=== PATIENT | male | born 1950 | race Caucasian/White ===

== ENCOUNTER 2018-12-06 15:41 | Inpatient (IN) | payer SELFPAY ==
[~2018-12-06] VITALS: Ht 165.1 cm; Wt 68.0 kg
--- NOTE | 2018-12-06 16:07 | NUR ---
PT TO BED 7 VIA WHEELCHAIR
[2018-12-06 16:12] VITALS: BP 99/59
--- NOTE | 2018-12-06 16:30 | NUR ---
Came back from [place] last September Bib ex with c/o general weakness and lethargic does not want to talk x 1 wk. PT NOT OPENNING EYES, PALE IN APPEARANCE. NEEDED ASSISTANCE TO BE PUT INTO BED. PATIENT POSITIONED FOR COMFORT; HOB ELEVATED; BEDRAILS UP X2; BED DOWN. ER MD MADE AWARE OF PT STATUS.
[2018-12-06] MEDS ORDERED: ATOR20TA PO (16:54)
[2018-12-06] MEDS ORDERED: LANS15TA2 PO (16:54)
[2018-12-06] MEDS ORDERED: SERT50TA PO (16:54)
[2018-12-06 17:06] LABS: BASOPHILS % (AUTO) 0.3 % (0.0-2.0); EOSINOPHILS # (AUTO) 0.1 K/uL (0-0.4); EOSINOPHILS % (AUTO) 2.8 % (0.0-4.0); HEMATOCRIT 33.7 % (36-52); HEMOGLOBIN 11.4 g/dL (12.0-18.0); LYMPHOCYTES # (AUTO) 2.1 K/uL (2.0-11.5); LYMPHOCYTES % (AUTO) 43.9 % (20.5-51.1); MEAN CORPUSCULAR HEMOGLOBIN 27 pg (27-31); MEAN CORPUSCULAR HGB CONC 34 g/dL (33-37); MONOCYTES # (AUTO) 0.4 K/uL (0.8-1.0); MONOCYTES % (AUTO) 9.2 % (1.7-9.3); NEUTROPHILS # (AUTO) 2.1 K/uL (1.8-7.7); NEUTROPHILS % (AUTO) 43.8 % (42.2-75.2); PLATELET COUNT (AUTO) 262 K/uL (140-450); RED BLOOD CELL COUNT(AUTO) 4.21 MIL/uL (4.20-6.10); RED CELL DISTRIBUTION WIDTH 14.4 % (11.6-13.7); WHITE BLOOD COUNT (AUTO) 4.7 K/uL (4.8-10.8)
[2018-12-06 17:32] LABS: ALBUMIN 3.5 g/dL (3.4-5.0); ANION GAP 12.9 (8-16); ASPARTATE AMINOTRANSFERASE 67 U/L (15-37); CARBON DIOXIDE 25.9 mmol/L (21-32); CHLORIDE 85 mmol/L (98-107); CREATININE 1.3 mg/dL (0.7-1.3); GFR ARICAN-AMERICAN 70 mL/min (>90); GLUCOSE 79 mg/dL (74-106); POTASSIUM 3.8 mmol/L (3.5-5.1); TOTAL BILIRUBIN 0.7 mg/dL (0.0-1.0); UREA NITROGEN, BLOOD 15 mg/dL (7-18)
[2018-12-06 17:35] LABS: SALICYLATE < 2.8 mg/dL (2.8-20.0); SODIUM SERUM 120 mmol/L (136-145)
[2018-12-06 17:37] LABS: ACETAMINOPHEN < 0.5 ug/ml (10-30)
--- NOTE | 2018-12-06 17:37 | NUR ---
VAHID ALEXIS AND DIONI MEHTA NOTIFIED OF Na 120 REPORTED BY LAB
[2018-12-06 17:39] LABS: CKMB RELATIVE INDEX 0.9 (0.0-2.5)
[2018-12-06] MEDS ORDERED: HYDROcodone/APAP 7.5/325 MG 1 TAB PO PRN (17:45)
[2018-12-06] MEDS ORDERED: ONDANSETRON 4 MG/2 ML VIAL IVP PRN (17:45)
[2018-12-06] MEDS ORDERED: ACETAMINOPHEN 325 MG TAB PO PRN (17:45)
[2018-12-06 18:43] LABS: FREE T4 (FREE THYROXINE) 0.44 ng/dL (0.76-1.46); PHOSPHORUS 4.1 mg/dL (2.5-4.9); THYROID STIMULATING HORMONE 3.32 uIU/mL (0.34-3.74)
[2018-12-06 18:44] LABS: PROTHROMBIN TIME 10.6 secs (10.8-13.4)
--- NOTE | 2018-12-06 18:54 | NUR ---
PT TAKEN TO TELE FLOOR BY REUBEN REDDING AND EMT AMANDA
--- NOTE | 2018-12-06 19:00 | NUR ---
RECEIVED PT FROM ER VIA RCHANELLE. PT AWAKE, ALERT X 3, CLEAR SPEECH BUT DELAYED DUE TO WEAKNESS. PT ON TELE. WITH IV SITE ON THE LEFT FA. G 22. DR. ALEGRE AT BEDSIDE INTERVIEWING FAMILY, DAUGHTER AND . PT ORIENTED TO UNIT, SKIN CHECKED, INTACT. W/ SWOLLEN SOLE OF BILATERAL FEET NOTED. DR. AGARWAL. PLACED AT FALL RISK . FALL PRECAUTION PROTOCOL IN PLACE. BED AT LOWEST POSITION. CALL LIGHT WITHIN EASY REACH
--- NOTE | 2018-12-06 19:08 | NUR ---
Patient will be admitted to care of DR. CASTRO. Admited to TELE. Will go to room 107B. Belongings list completed. Report to REUBEN.
[2018-12-06] MEDS ORDERED: NACL 0.9% 500 ML IV ONE (20:00)
--- NOTE | 2018-12-06 21:00 | NUR ---
PT MEDICATED ORALLY. WILL INFORM DRZaida FOR SWALLOWING EVAL IF NECESSARY ABLE TO TAKE SMALL MEDS ONLY.
[2018-12-06] MEDS: NACL 0.9% 1,000 ML IV SCH (21:05)
[2018-12-06] MEDS: ATORVASTATIN 20 MG TAB PO SCH (21:06)
[2018-12-06] MEDS: DOCUSATE SODIUM 100 MG GELCAP PO SCH (22:26)
--- NOTE | 2018-12-06 22:30 | NUR ---
PT OBSERVED W/ RIGHT SIDED SPASTICITY ON THE UPPER ARM. AAND WEAKNESS ON THE RIGHT LE.
[2018-12-06 23:50] LABS: ALBUMIN 3.5 g/dL (3.4-5.0); ANION GAP 8.8 (8-16); CREATININE 1.2 mg/dL (0.7-1.3); POTASSIUM 3.8 mmol/L (3.5-5.1); TOTAL BILIRUBIN 0.6 mg/dL (0.0-1.0)
[2018-12-07] VITALS: BP 130/80
[2018-12-07 00:53] LABS: ALBUMIN 3.2 g/dL (3.4-5.0); ANION GAP 8.9 (8-16); CARBON DIOXIDE 27.9 mmol/L (21-32); POTASSIUM 3.8 mmol/L (3.5-5.1); TOTAL BILIRUBIN 0.5 mg/dL (0.0-1.0)
[2018-12-07] MEDS: NACL 0.9% 500 ML IV SCH ×2 (02:00→17:05)
[2018-12-07 04:00] VITALS: BP 135/78
[2018-12-07] MEDS: NACL 0.9% 1,000 ML IV SCH (05:18)
[2018-12-07 06:35] LABS: BASOPHILS % (AUTO) 1.3 % (0.0-2.0); EOSINOPHILS # (AUTO) 0.1 K/uL (0-0.4); EOSINOPHILS % (AUTO) 2.9 % (0.0-4.0); HEMOGLOBIN 10.6 g/dL (12.0-18.0); LYMPHOCYTES # (AUTO) 1.9 K/uL (2.0-11.5); LYMPHOCYTES % (AUTO) 47.7 % (20.5-51.1); MEAN CORPUSCULAR HEMOGLOBIN 27 pg (27-31); MEAN CORPUSCULAR HGB CONC 34 g/dL (33-37); MEAN CORPUSCULAR VOLUME 79.2 fL (80-94); MONOCYTES # (AUTO) 0.3 K/uL (0.8-1.0); MONOCYTES % (AUTO) 8.2 % (1.7-9.3); NEUTROPHILS # (AUTO) 1.6 K/uL (1.8-7.7); NEUTROPHILS % (AUTO) 39.9 % (42.2-75.2); PLATELET COUNT (AUTO) 237 K/uL (140-450); RED BLOOD CELL COUNT(AUTO) 3.92 MIL/uL (4.20-6.10); RED CELL DISTRIBUTION WIDTH 14.3 % (11.6-13.7)
--- NOTE | 2018-12-07 06:45 | NUR ---
PT HAD A HYPOGLYCEMIC EPISODE. LAB CALLED THAT BS WAS 45MG/DL. INFORMED DR WITH ORDERS CARRIED OUT
[2018-12-07 06:46] LABS: CARBON DIOXIDE 25.4 mmol/L (21-32); CREATININE 0.9 mg/dL (0.7-1.3); POTASSIUM 3.4 mmol/L (3.5-5.1)
[2018-12-07 06:53] LABS: CHOL/HDL RATIO 3.6 (1-4.5); MAGNESIUM 1.8 mg/dL (1.8-2.4); PHOSPHORUS 3.3 mg/dL (2.5-4.9)
[2018-12-07] MEDS ORDERED: DEXTROSE 50% 50 ML SYR IVP PRN (07:05)
[2018-12-07] MEDS ORDERED: DEXT 5% /NACL 0.9% 1,000 ML IV SCH (07:15)
[2018-12-07] MEDS ORDERED: DEXTROSE 50% 50 ML SYR IVP ONE (07:20)
--- NOTE | 2018-12-07 07:35 | NUR ---
ENDORSED TO NEXT SHIFT. TAKEN BLOOD SUGAR AT 163MG/DL AFTER A HYPOGLYCEMIC EPISODE EARLIER AND WAS GIVEN D50% INJECTION. STARTED D5.9NS AT 90 ML/HR.
--- NOTE | 2018-12-07 07:36 | NUR ---
REPORT RECEIVED FROM ALLIGATOR HUNTER NURSE, PT SITTING UP RESTING IN NAD, RESP EVNE UNLABORED, SKIN WARM DRY COLOR WNL, POC REVIEWED, ALLIGATOR HUNTER NRUSE AT BEDSIDE, CHECKED BLOOD SUGAR, IMPROVED AFTER D50, ALL SAFETY MEASURES IN [place], WILL CONTINUE TO MONITOR.
--- NOTE | 2018-12-07 07:45 | NUR ---
PT HAD A HYPOGLYCEMIC EPISODE. LAB CALLED THAT BS WAS 45MG/DL. INFORMED DR WITH ORDERS CARRIED OUT Addendum: 12/07/18 at 0852 by Krystal Herndon RN WRONG TIME
--- NOTE | 2018-12-07 07:51 | NUR ---
PATIENT HAS BEEN SCREENED AND CATEGORIZED HIGH NUTRITION RISK. PATIENT WILL BE SEEN WITHIN 1-2 DAYS OF ADMISSION. 12/07/18-12/08/[address]
[2018-12-07 08:00] VITALS: BP 138/88
[2018-12-07] MEDS ORDERED: POTASSIUM CHLORIDE 10 MEQ TABER PO SCH ×2 (08:00→13:00)
--- NOTE | 2018-12-07 08:01 | NUR ---
PT SITTING UP EATING BREAKFAST, CHIRAG WELL.
[2018-12-07] MEDS: FERROUS SULFATE 325 MG TABEC PO SCH (08:57)
[2018-12-07] MEDS: DOCUSATE SODIUM 100 MG GELCAP PO SCH ×2 (08:57→20:34)
[2018-12-07] MEDS: PANTOPRAZOLE 40 MG TABEC PO SCH (08:57)
--- NOTE | 2018-12-07 08:58 | NUR ---
AM MEDS GIVEN, PT TOOK ONE PILL AT A TIME, CHIRAG WELL. HEPARIN HELD FOR INCREASED PTT.
--- NOTE | 2018-12-07 10:25 | NUR ---
DAUGHTER AT BEDSIDE, PT ASSISTED TO BATHROOM FOR BM, 2 PERSON MAXIMUM ASSIST, PT UNSTABLE ON HIS FEET.
[2018-12-07 12:00] VITALS: BP 105/70
--- NOTE | 2018-12-07 12:07 | NUR ---
12/07/18 RD INITIAL ASSESSMENT COMPLETED RD RECOMMENDATIONS: 1. CONTINUE REGULAR DIET TOLERATED 2. RECOMMEND ENSURE BID IF PO INTAKE <50% 3. RD TO FOLLOW UP WITH GERD NUTRITION EDUCATION 4. RD TO FOLLOW-UP 3-5 DAYS, MODERATE RISK PLEASE REFER TO NUTRITION ASSESSMENT UNDER CARE ACTIVITY FOR ESTIMATED NUTRITIONAL NEEDS. SAMANTHA MILLER RD
--- NOTE | 2018-12-07 12:56 | NUR ---
SCHEDULED MED GIVEN PT CHIRAG WELL, PT SITTING UP EATING LUNCH WITH ASSIST. APPEARS IN NAD, WILL CONTINUE TO MONITOR.
[2018-12-07 14:36] LABS: ANION GAP 7.4 (8-16); CARBON DIOXIDE 29.2 mmol/L (21-32); CREATININE 0.9 mg/dL (0.7-1.3); POTASSIUM 3.6 mmol/L (3.5-5.1)
[2018-12-07 16:00] VITALS: BP 113/75
--- NOTE | 2018-12-07 16:00 | NUR ---
VITALS TAKEN, STABLE, NO C/O PAIN, PERICARE DONE.
--- NOTE | 2018-12-07 17:50 | NUR ---
PT SITTING UP EATING DINNER ASSISTED BY GRANDDAUGHTER.
[2018-12-07 18:33] LABS: ANION GAP 12.1 (8-16); CARBON DIOXIDE 26.7 mmol/L (21-32); CREATININE 0.9 mg/dL (0.7-1.3); POTASSIUM 3.8 mmol/L (3.5-5.1)
--- NOTE | 2018-12-07 19:20 | NUR ---
REPORT GIVEN TO LITERACY COORDINATOR NURSE, PT RESTING QUIETLY IN NAD.
--- NOTE | 2018-12-07 19:22 | NUR ---
RECEIVED BEDSIDE REPORT FROM AM SHIFT NURSE, PT SITTING IN THE BEDSIDE COMMODE WITH MAXIMAL ASSIST, IMBALANCE NOTED LEANING TO ONE SIDE, RESP EVEN UNLABORED, SKIN , PALE IN COLOR. POC REVIEWED. 1 BM NOTED, DARK BROWN, SOFT IN COLOR. PLACED IN BED COMFORTABLY W/ 2 ASSIST. BED AT LOWEST POSITION. WILL CONTINUE TO MONITOR
[2018-12-07 20:00] VITALS: BP 102/66
[2018-12-07] MEDS: ATORVASTATIN 20 MG TAB PO SCH (20:32)
--- NOTE | 2018-12-07 20:33 | NUR ---
MEDICATED PT. PT TOOK MEDICINE ABLE TO SWALLOW. BUT WITH LITTLE AMOUNT OF MEDS. ASPIRATION PRECAUTION MAINTAINED. HOB ELEVATED
--- NOTE | 2018-12-07 21:13 | NUR ---
GAVE ORANGE JUICE X 2 PACKS
[2018-12-08] VITALS: BP 142/89
--- NOTE | 2018-12-08 00:32 | NUR ---
BP 142/89, MN 67, O2 SAT 97, TEMP. 98.5, 18. DR. ALEX AWARE HIGH BP.
[2018-12-08 00:46] LABS: APPEARANCE,URINE CLEAR (CLEAR); BILIRUBIN,URINE NEGATIVE (NEGATIVE); BLOOD, URINE 1+ (NEGATIVE); COLOR,URINE YELLOW (YELLOW); LEUKOCYTE ESTERASE ,URINE NEGATIVE (NEGATIVE); NITRITE, URINE NEGATIVE (NEGATIVE); UGLUCOSE NEGATIVE (NEGATIVE)
[2018-12-08 00:51] LABS: ANION GAP 4.9 (8-16); CARBON DIOXIDE 31.5 mmol/L (21-32); CREATININE 0.9 mg/dL (0.7-1.3); POTASSIUM 4.4 mmol/L (3.5-5.1)
[2018-12-08 00:54] LABS: BARBITURATE, URINE NEG. ng/ml (NEG <=200); BENZODIAZEPINE, URINE NEG. ng/mL (NEG <=200); CANNABINOID, URINE NEG. ng/mL (NEG <=50); COCAINE, URINE NEG. ng/mL (NEG <=300); OPIATE, URINE NEG. ng/mL (NEG <=2000); PHENCYCLIDINE SCREEN,URINE NEG. ng/mL (NEG <=25)
[2018-12-08 01:53] LABS: RBC,URINE 0-5 (RARE) /HPF (0-5); WBC,URINE 0-5 (RARE) /HPF (0-5)
--- NOTE | 2018-12-08 02:00 | NUR ---
PT SLEEPING, NO SOB, NO COMPLAINTS AT THIS TIME. STABLE CONDITION. WILL CONTINUE TO MONITOR
[2018-12-08 04:00] VITALS: BP 145/89
[2018-12-08] MEDS: NACL 0.9% 500 ML IV SCH (04:51)
--- NOTE | 2018-12-08 05:20 | NUR ---
CALLED BY LAB TO INFORM THAT PT HAS CRITICAL RESULT THAT SODIUM IS 123. DR. JUÁREZ
[2018-12-08 06:01] LABS: BASOPHILS % (AUTO) 0.8 % (0.0-2.0); EOSINOPHILS # (AUTO) 0.2 K/uL (0-0.4); EOSINOPHILS % (AUTO) 2.4 % (0.0-4.0); HEMATOCRIT 28.6 % (36-52); HEMOGLOBIN 9.7 g/dL (12.0-18.0); LYMPHOCYTES # (AUTO) 1.7 K/uL (2.0-11.5); LYMPHOCYTES % (AUTO) 27.2 % (20.5-51.1); MEAN CORPUSCULAR HEMOGLOBIN 27 pg (27-31); MEAN CORPUSCULAR HGB CONC 34 g/dL (33-37); MEAN CORPUSCULAR VOLUME 79.9 fL (80-94); MONOCYTES # (AUTO) 0.4 K/uL (0.8-1.0); MONOCYTES % (AUTO) 6.3 % (1.7-9.3); NEUTROPHILS # (AUTO) 3.9 K/uL (1.8-7.7); NEUTROPHILS % (AUTO) 63.3 % (42.2-75.2); PLATELET COUNT (AUTO) 208 K/uL (140-450); RED BLOOD CELL COUNT(AUTO) 3.59 MIL/uL (4.20-6.10); WHITE BLOOD COUNT (AUTO) 6.2 K/uL (4.8-10.8)
[2018-12-08 06:14] LABS: ANION GAP 9.2 (8-16); CARBON DIOXIDE 26.7 mmol/L (21-32); CREATININE 0.7 mg/dL (0.7-1.3); POTASSIUM 3.9 mmol/L (3.5-5.1)
[2018-12-08 06:18] LABS: MAGNESIUM 1.5 mg/dL (1.8-2.4); PHOSPHORUS 2.8 mg/dL (2.5-4.9)
--- NOTE | 2018-12-08 06:55 | NUR ---
WILL ENDORSE TO NEXT SHIFT FOR CONTINUITY OF CARE. PT IN STABLE CONDITION.
--- NOTE | 2018-12-08 07:10 | NUR ---
Received bedside report from pm nurse Krystal. Pt asleep in bed, respirations even & nonlabored, FLACC 0. Call light within reach, bed alarm on.
[2018-12-08 08:00] VITALS: BP 103/70
[2018-12-08] MEDS: NACL 0.9% 1,000 ML IV SCH ×3 (08:20→22:58)
[2018-12-08] MEDS: DOCUSATE SODIUM 100 MG GELCAP PO SCH ×2 (08:21→20:53)
[2018-12-08] MEDS: PANTOPRAZOLE 40 MG TABEC PO SCH (08:21)
[2018-12-08] MEDS: FERROUS SULFATE 325 MG TABEC PO SCH (08:21)
[2018-12-08 08:29] LABS: FERRITIN 330 ng/mL (30-400)
--- NOTE | 2018-12-08 08:30 | NUR ---
Pt in high fowlers in bed, eating breakfast with max assist by LOAN REVIEW OFFICER. No signs of distress. FLACC 0. Left forearm IV intact with ongoing NS @ 85ml/hr. Call light within reach.
[2018-12-08] MEDS ORDERED: MAG SULF 2000 MG/WATER PREMIX 50 ML IV SCH (11:00)
--- NOTE | 2018-12-08 13:08 | NUR ---
Discotheque Dancer Note: I attempted to speak with patient's daughter Dora Garcia , however, this phone number is for [facility], the person who answered stated they don't have an employee named Dora Garcia. Patient's face sheet only has this number listed. I requested for patient's nurse Yane to please obtain patient's family members contact information once they visit.
[2018-12-08 15:07] LABS: ANION GAP 4.8 (8-16); CREATININE 0.8 mg/dL (0.7-1.3); POTASSIUM 3.8 mmol/L (3.5-5.1)
[2018-12-08 16:00] VITALS: BP 101/57
[2018-12-08 18:50] LABS: ANION GAP 7.7 (8-16); CARBON DIOXIDE 25.1 mmol/L (21-32); CREATININE 0.8 mg/dL (0.7-1.3); POTASSIUM 3.8 mmol/L (3.5-5.1)
--- NOTE | 2018-12-08 19:15 | NUR ---
RECD. RESTING IN BED, SLEEPING WAKES UP WHEN TOUCH ASK QUESTIONS. RESPIRATION EVEN AND UNLABORED. IV OF NS AT 85 ML/HR INFUSING, LEFT FOREARM G22. USED BUSINESS SYSTEMS ADMINISTRATOR SAVANNAH, #[id number]. PATIENT KNOWS WHERE HE IS BUT DOES NOT KNOW PRESENT MONTH AND DAY. PLANNED OF CARE DISCUSSED. STATED "SI" AND WENT BACK TO SLEEP. NO APPEARANCE OF PAIN NOTED 0/10.
[2018-12-08 20:00] VITALS: BP 106/60
--- NOTE | 2018-12-08 20:00 | NUR ---
Patient's Plan of Care was discussed and reviewed with NURSING PROGRAM CHAIR: OZ, WILL CONTINUE WITH CURRENT POC.
--- NOTE | 2018-12-08 20:00 | NUR ---
OPENS EYES WHEN VS TAKEN, WENT BACK TO SLEEP AGAIN. NO APPEARANCE OF PAIN NOTED 0/10.
[2018-12-08 21:52] LABS: TRANSFERRIN 183 mg/dL (200-370)
[2018-12-09] VITALS: BP 103/58
--- NOTE | 2018-12-09 | NUR ---
STILL SLEEPING COMFORTABLY IN BED.
[2018-12-09 04:00] VITALS: BP 104/61
--- NOTE | 2018-12-09 06:00 | NUR ---
WAKEN UP FOR VITAL SIGN TAKING. BACK TO SLEEP AGAIN, VS STABLE.
[2018-12-09 06:32] LABS: MAGNESIUM 1.7 mg/dL (1.8-2.4); PHOSPHORUS 2.8 mg/dL (2.5-4.9)
[2018-12-09 06:36] LABS: BASOPHILS # (AUTO) 0.1 K/uL (0.00-0.22); BASOPHILS % (AUTO) 1.5 % (0.0-2.0); EOSINOPHILS # (AUTO) 0.1 K/uL (0-0.4); EOSINOPHILS % (AUTO) 2.8 % (0.0-4.0); HEMATOCRIT 25.6 % (36-52); HEMOGLOBIN 8.7 g/dL (12.0-18.0); LYMPHOCYTES # (AUTO) 1.7 K/uL (2.0-11.5); MEAN CORPUSCULAR HEMOGLOBIN 27 pg (27-31); MEAN CORPUSCULAR HGB CONC 34 g/dL (33-37); MONOCYTES # (AUTO) 0.3 K/uL (0.8-1.0); MONOCYTES % (AUTO) 7.3 % (1.7-9.3); NEUTROPHILS # (AUTO) 1.4 K/uL (1.8-7.7); NEUTROPHILS % (AUTO) 39.4 % (42.2-75.2); PLATELET COUNT (AUTO) 175 K/uL (140-450); RED CELL DISTRIBUTION WIDTH 14.7 % (11.6-13.7); WHITE BLOOD COUNT (AUTO) 3.5 K/uL (4.8-10.8)
[2018-12-09 06:39] LABS: ANION GAP 9.3 (8-16); CARBON DIOXIDE 24.6 mmol/L (21-32); CREATININE 0.8 mg/dL (0.7-1.3); POTASSIUM 3.9 mmol/L (3.5-5.1)
[2018-12-09] MEDS: NACL 0.9% 1,000 ML IV SCH (06:58)
--- NOTE | 2018-12-09 07:25 | NUR ---
ENDORSED TO AM NURSE FOR CONTINUITY OF CARE.
--- NOTE | 2018-12-09 07:50 | NUR ---
PATIENT WAS SLEEPING COMFORTABLY, EASILY AROUSABLE BY TOUCH. RESPIRATION EVEN, UNLABOR ON ROOM AIR. SKIN DRY AND WARM. IV PATENT AND INTACT. FLACC 0. PLAN OF CARE WAS DISCUSSED WITH PATIENT. BED AT LOW POSITION, SIDE RAILS UP. CALL LIGHT WITHIN REACH. BED ALARM ACTIVE
[2018-12-09 08:00] VITALS: BP 113/68
[2018-12-09] MEDS: FERROUS SULFATE 325 MG TABEC PO SCH (08:28)
[2018-12-09] MEDS: PANTOPRAZOLE 40 MG TABEC PO SCH (08:28)
[2018-12-09] MEDS: DOCUSATE SODIUM 100 MG GELCAP PO SCH ×2 (08:29→20:40)
--- NOTE | 2018-12-09 10:00 | NUR ---
PATIENT WAS RESTING COMFORTABLY. RESPIRATION EVEN, UNLABOR ON ROOM AIR. NO DISTRESS NOTED AT THIS TIME
--- NOTE | 2018-12-09 10:15 | NUR ---
Marine Pipefitter Helper Note: I requested for patient's nurse RN Kelly to please call me once family arrives, I explained to her the phone number listed for patient's daughter Dora on face sheet is incorrect.
[2018-12-09] MEDS ORDERED: ERGOCALCIFEROL 50,000 IU SGL PO SCH ×2 (10:45→11:30)
[2018-12-09] MEDS ORDERED: CALCIUM ACETATE 667 MG TAB PO SCH (10:50)
[2018-12-09] MEDS ORDERED: MAG SULF 2000 MG/WATER PREMIX 50 ML IV SCH (11:00)
[2018-12-09] MEDS: SODIUM CHLORIDE 1 GM TAB PO SCH ×2 (12:11→17:40)
--- NOTE | 2018-12-09 12:30 | NUR ---
PATIENT WAS SLEEPING COMFORTABLY. RESPIRATION EVEN, UNLABOR ON ROOM AIR. NO DISTRESS NOTED AT THIS TIME
--- NOTE | 2018-12-09 14:30 | NUR ---
PATIENT WAS SLEEPING COMFORTABLY. NO DISTRESS NOTED AT THIS TIME
[2018-12-09 16:00] VITALS: BP 112/73
--- NOTE | 2018-12-09 16:00 | NUR ---
PATIENT WAS SLEEPING COMFORTABLY, EASILY AROUSABLE BY NAME. RESPIRATION EVEN, UNLABOR ON ROOM AIR. FLACC 0. NO DISTRESS NOTED AT THIS TIME.
--- NOTE | 2018-12-09 18:20 | NUR ---
PATIENT WAS AWAKE, EATING DINNER COMFORTABLY. RESPIRATION EVEN, UNLABOR ON ROOM AIR. IV PATENT AND INTACT. NO DISTRESS NOTED AT THIS TIME. CALL LIGHT WITHIN REACH
--- NOTE | 2018-12-09 19:24 | NUR ---
ENDORSEMENT GIVEN TO COMMUNICATIONS INSTRUCTOR NURSE. PATIENT IS STABLE AT THIS TIME.
--- NOTE | 2018-12-09 19:26 | NUR ---
RECEIVED PATIENT AWAKE LYING COMFORTABLY ON BED ACCOMPANIED BY FAMILY MEMBER. EXPLAINED PLAN OF CARE THROUGH FAMILY MEMBERS. IVF IN SALINE LOCK FLUSHED FOR PATENCY.RESPIRATION EVEN AND UNLABORED IN ROOM AIR. REPOSITIONED PATIENT AND PLACE IN COMFORTABLE POSITION. NO SIGN OF DISTRESS NOTED. FALL PRECAUTION IN PLACE. EXPLAINED TO UTILIZED CALL LIGHT FOR ASSISTANCE. WILL CONTINUE TO MONITOR.
[2018-12-09 20:00] VITALS: BP 118/73
--- NOTE | 2018-12-09 21:00 | NUR ---
V/S TAKEN AND RECORDED WNL. SCHEDULE MEDICATION GIVEN TOLERATED WELL. HOB ELEVATED.REPOSITIONED PATIENT AND PLACE IN COMFORTABLE POSITION.NO SIGN OF DISTRESS NOTED. CALL LIGHT WITHIN REACH.
--- NOTE | 2018-12-10 | NUR ---
CHECKED PATIENT ASLEEP COMFORTABLY ON BED BUT EASILY AROUSABLE. REPOSITIONED PATIENT AND COVERED WITH WARM BLANKET FOR COMFORT. NO SIGN OF DISTRESS NOTED. HOURLY ROUNDS DONE. FALL PRECAUTION APPLIED. CALL LIGHT WITHIN REACH. WILL CONTINUE TO MONITOR.
--- NOTE | 2018-12-10 02:00 | NUR ---
SEEN PATIENT ASLEEP. NO SIGN OF DISTRESS NOTED ART THIS TIME. FALL PRECAUTION APPLIED. MADE HOURLY ROUNDING FOR SAFETY. CALL LIGHT WITHIN REACH. WILL CONTINUE TO MONITOR.
--- NOTE | 2018-12-10 04:00 | NUR ---
AMERICANIZATION TEACHER RENDERED AM CARE AND PLACE IN COMFORTABLE POSITION. NO SIGN OF DISTRESS NOTED, DENIES PAIN. ALL NEEDS ATTENDED. FALL PRECAUTION. IMPLEMENTED. MADE HOURLY ROUNDING . CALL LIGHT WITHIN REACH.WILL CONTINUE TO MONITOR.
[2018-12-10 06:03] LABS: BASOPHILS % (AUTO) 1.2 % (0.0-2.0); EOSINOPHILS # (AUTO) 0.2 K/uL (0-0.4); EOSINOPHILS % (AUTO) 4.4 % (0.0-4.0); HEMATOCRIT 26.9 % (36-52); HEMOGLOBIN 9.1 g/dL (12.0-18.0); LYMPHOCYTES # (AUTO) 1.9 K/uL (2.0-11.5); LYMPHOCYTES % (AUTO) 51.1 % (20.5-51.1); MEAN CORPUSCULAR HEMOGLOBIN 28 pg (27-31); MEAN CORPUSCULAR HGB CONC 34 g/dL (33-37); MEAN CORPUSCULAR VOLUME 81.2 fL (80-94); MONOCYTES # (AUTO) 0.3 K/uL (0.8-1.0); MONOCYTES % (AUTO) 7.1 % (1.7-9.3); NEUTROPHILS # (AUTO) 1.4 K/uL (1.8-7.7); NEUTROPHILS % (AUTO) 36.2 % (42.2-75.2); PLATELET COUNT (AUTO) 172 K/uL (140-450); RED BLOOD CELL COUNT(AUTO) 3.32 MIL/uL (4.20-6.10); RED CELL DISTRIBUTION WIDTH 14.4 % (11.6-13.7); WHITE BLOOD COUNT (AUTO) 3.8 K/uL (4.8-10.8)
[2018-12-10 06:52] LABS: ANION GAP 5.8 (8-16); CARBON DIOXIDE 29.1 mmol/L (21-32); CREATININE 0.8 mg/dL (0.7-1.3); POTASSIUM 3.9 mmol/L (3.5-5.1)
[2018-12-10 06:56] LABS: PHOSPHORUS 3.5 mg/dL (2.5-4.9)
--- NOTE | 2018-12-10 07:05 | NUR ---
ENDORSEMENT GIVEN TO AM SHIFT RN AT BEDSIDE FOR CONTINUITY OF CARE. CALL LIGHT WITHIN REACH. ALL NEEDS ATTENDED. PATIENT IN STABLE CONDITION.
[2018-12-10 08:00] VITALS: BP 132/68
[2018-12-10] MEDS ORDERED: CALCIUM ACETATE 667 MG TAB PO SCH (08:00)
[2018-12-10] MEDS: DOCUSATE SODIUM 100 MG GELCAP PO SCH ×2 (08:15→21:00)
[2018-12-10] MEDS: SODIUM CHLORIDE 1 GM TAB PO SCH ×3 (08:15→16:29)
[2018-12-10] MEDS: PANTOPRAZOLE 40 MG TABEC PO SCH (08:15)
[2018-12-10] MEDS: FERROUS SULFATE 325 MG TABEC PO SCH (08:15)
--- NOTE | 2018-12-10 10:00 | NUR ---
PATIENT WAS SLEEPING COMFORTABLY. RESPIRATION EVEN, UNLABOR ON ROOM AIR. NO DISTRESS NOTED AT THIS TIME
--- NOTE | 2018-12-10 11:55 | NUR ---
PATIENT WAS SLEEPING COMFORTABLY. RESPIRATION EVEN, UNLABOR NO ROOM AIR. NO DISTRESS NOTED AT THIS TIME
--- NOTE | 2018-12-10 13:32 | NUR ---
URINE SAMPLE WAS COLLECTED AND SENT TO LAB PER ORDER
[2018-12-10 16:00] VITALS: BP 111/57
--- NOTE | 2018-12-10 16:34 | NUR ---
PATIENT WAS SLEEPING COMFORTABLY, EASILY AROUSABLE BY TOUCH. MED WAS GIVEN PER ORDER. NO DISTRESS NOTED AT THIS TIME.
--- NOTE | 2018-12-10 18:15 | NUR ---
PATIENT WAS AWAKE, EATING DINNER COMFORTABLY. RESPIRATION EVEN ,UNLABOR ON ROOM AIR. NO DISTRESS NOTED. IV PATENT AND INTACT. NO DISTRESS NOTED AT THIS TIME
--- NOTE | 2018-12-10 19:28 | NUR ---
ENDORSEMENT GIVEN TO CLINICAL APPLICATIONS SPECIALIST NURSE. PATIENT IS STABLE AT THIS TIME
--- NOTE | 2018-12-10 19:30 | NUR ---
RECEIVED PATIENT AWAKE HAVING DINNER HOB ELEVATED. RESPIRATION EVEN AND UNLABORED ON ROOM AIR. FALL PRECAUTION APPLIED.PATIENT NEEDS VERBAL CUES AND REINFORCEMENT. PATIENT FOLLOWS SIMPLE COMMANDS. CALL LIGHT WITHIN REACH. WILL CONTINUE TO MONITOR.
--- NOTE | 2018-12-10 21:00 | NUR ---
V/S TAKEN WNL.SCHEDULE MEDICATION GIVEN TOLERATED WELL. REPOSITIONED PATIENT WITH HOB ELEVATED. NO SIGN OF DISTRESS NOTED AT THIS TIME. FALL PRECAUTION IN PLACE. WILL CONTINUE TO MONITOR.
[2018-12-10 23:50] VITALS: BP 110/62
--- NOTE | 2018-12-11 | NUR ---
V/S TAKEN WNL. REPOSITIONED AND PLACE IN COMFORTABLE POSITION. NO SIGN OF DISTRESS NOTED. CALL LIGHT WITHIN REACH. FALL PRECAUTION APPLIED.WILL CONTINUE TO MONITOR.
--- NOTE | 2018-12-11 00:05 | NUR ---
SEEN PATIENT ASLEEP IN COMFORTABLE POSITION. NO SIGN OF DISTRESS NOTED. SAFETY PRECAUTION APPLIED. CALL LIGHT WITHIN REACH.
--- NOTE | 2018-12-11 02:00 | NUR ---
SEEN PATIENT ASLEEP. NO SIGN OF DISTRESS NOTED. CALL LIGHT WITHIN REACH. WILL CONTINUE TO MONITOR.
--- NOTE | 2018-12-11 04:30 | NUR ---
CHECKED PATIENT RESTING ON BED BUT EASILY AROUSABLE. AM CARE DONE .ALL NEEDS ATTENDED.
--- NOTE | 2018-12-11 07:10 | NUR ---
GAVE REPORT TO AM SHIFT RN AT BEDSIDE FOR CONTINUITY OF CARE. CALL LIGHT WITHIN REACH. ALL NEEDS ATTENDED. PATIENT IN STABLE CONDITION.
[2018-12-11 07:27] LABS: EOSINOPHILS # (AUTO) 0.2 K/uL (0-0.4); EOSINOPHILS % (AUTO) 4.6 % (0.0-4.0); HEMATOCRIT 27.6 % (36-52); HEMOGLOBIN 9.4 g/dL (12.0-18.0); LYMPHOCYTES # (AUTO) 2.1 K/uL (2.0-11.5); LYMPHOCYTES % (AUTO) 53.6 % (20.5-51.1); MEAN CORPUSCULAR HEMOGLOBIN 28 pg (27-31); MEAN CORPUSCULAR HGB CONC 34 g/dL (33-37); MEAN CORPUSCULAR VOLUME 80.9 fL (80-94); MONOCYTES # (AUTO) 0.2 K/uL (0.8-1.0); NEUTROPHILS # (AUTO) 1.4 K/uL (1.8-7.7); NEUTROPHILS % (AUTO) 34.8 % (42.2-75.2); PLATELET COUNT (AUTO) 194 K/uL (140-450); RED BLOOD CELL COUNT(AUTO) 3.41 MIL/uL (4.20-6.10); RED CELL DISTRIBUTION WIDTH 14.4 % (11.6-13.7)
[2018-12-11 07:39] LABS: ANION GAP 7.6 (8-16); CREATININE 0.9 mg/dL (0.7-1.3); POTASSIUM 3.6 mmol/L (3.5-5.1)
[2018-12-11 07:57] LABS: MAGNESIUM 1.7 mg/dL (1.8-2.4); PHOSPHORUS 3.1 mg/dL (2.5-4.9)
[2018-12-11 08:00] VITALS: BP 119/73
[2018-12-11] MEDS ORDERED: FUROSEMIDE 40 MG TAB PO SCH (09:00)
[2018-12-11] MEDS ORDERED: CALCIUM CARB 600 MG TAB PO SCH (09:00)
[2018-12-11] MEDS: DOCUSATE SODIUM 100 MG GELCAP PO SCH (10:05)
[2018-12-11] MEDS: PANTOPRAZOLE 40 MG TABEC PO SCH (10:06)
[2018-12-11] MEDS: SODIUM CHLORIDE 1 GM TAB PO SCH ×2 (10:07→12:57)
[2018-12-11] MEDS: FERROUS SULFATE 325 MG TABEC PO SCH (10:10)
--- NOTE | 2018-12-11 12:44 | NUR ---
12/11/18 RD FOLLOW UP COMPLETED PLEASE REFER TO NUTRITION PROGRESS NOTE UNDER CARE ACTIVITY FOR ESTIMATED NUTRITION NEEDS. RD RECOMMENDATIONS: 1. CONTINUE REGULAR MECHANICAL SOFT DIET TOLERATED 2. RECOMMEND FEEDER DURING MEALTIMES DUE TO IMPROVED PO INTAKE. 3. RD TO FOLLOW-UP 3-5 DAYS, MODERATE RISK MELANI JIANG, RD
[2018-12-11] MEDS ORDERED: MAG SULF 2000 MG/WATER PREMIX 50 ML IV ONE (13:40)
[2018-12-11] MEDS ORDERED: SODI100076 PO (13:45)
[2018-12-11 16:00] VITALS: BP 116/72
--- NOTE | 2018-12-11 17:45 | NUR ---
PT DISCHARGED HOME FOR SELF CARE. PT DISCHARGE PAPERWORK SIGNED. ALL PAPERWORK TAKEN WITH PT. PT TOOK ALL PERSONAL BELONGINGS WITH HIM. IV REMOVED WITH TIP INTACT. PT AND FAMILY INSTRUCTED ON DISCHARGE INSTRUCTIONS PT AND FAMILY VERBALIZED UNDERSTANDING. VITAL SIGNS STABLE. PT STABLE AT THIS TIME. WRIST BAND REMOVED. INSTRUCTED TO FOLLOW-UP WITH PCP WITHIN 5-7 DAYS FROM DC.
== END 2018-12-11 17:45 | disposition home or self-care (01) | DRG 643 ==
LOC: MED 15:41 → MTU 18:00
PROVIDERS: ADMIT General Practice; ATTEND General Practice
DX: E22.2 Syndrome of inappropriate secretion of antidiuretic hormone (principal); G93.41 Metabolic encephalopathy; E46 Unspecified protein-calorie malnutrition; E87.8 Other disorders of electrolyte and fluid balance, not elsewhere classified; E83.51 Hypocalcemia; K21.9 Gastro-esophageal reflux disease without esophagitis; E78.00 Pure hypercholesterolemia, unspecified; D64.9 Anemia, unspecified; E87.6 Hypokalemia; E83.42 Hypomagnesemia; D63.8 Anemia in other chronic diseases classified elsewhere; E78.5 Hyperlipidemia, unspecified; F32.9 Major depressive disorder, single episode, unspecified; Z85.841 Personal history of malignant neoplasm of brain; Z86.73 Personal history of transient ischemic attack (TIA), and cerebral infarction without residual deficits; Z90.49 Acquired absence of other specified parts of digestive tract; Z68.25 Body mass index [BMI] 25.0-25.9, adult
CPT/HCPCS: 36415; 70450; 71045; 80048; 80053; 80305; 81001; 82140; 82150; 82306; 82550; 82553; 82607; 82728; 82746; 82948; 83036; 83540; 83605; 83690; 83735; 83880; 83930; 83935; 84100; 84300; 84439; 84443; 84484; 85025; 85045; 85610; 85730; 87081; 93005; 99285; C1758; G0480; G0482; J1644; J3475; J7030; J7042; J7060; Q0092

== ENCOUNTER 2023-04-27 17:39 | Emergency (ER) | payer MEDICAID ==
[~2023-04-27] VITALS: Ht 162.6 cm; Wt 73.0 kg
[~2023-04-27 17:39] MED LIST: ATOR20TA PO; LANS15TA2 PO; SERT50TA PO; SODI100076 PO
[2023-04-27 17:56] VITALS: BP 150/95; PULSE 75; RESP 18; TEMP 97.8; O2SAT 95
--- NOTE | 2023-04-27 18:56 | NUR ---
PT WALKED TO ROOM
[2023-04-27] MEDS ORDERED: FLO.1 PO (19:16)
[2023-04-27] MEDS ORDERED: HYDR10TA1 PO (19:16)
[2023-04-27] MEDS ORDERED: BENA20TA PO (19:16)
[2023-04-27] MEDS ORDERED: OMEP20EC11 PO (19:16)
--- NOTE | 2023-04-27 19:40 | NUR ---
MD Waller at bedside examining pt.
--- NOTE | 2023-04-27 20:04 | NUR ---
Patient discharged with v/s stable. Written and verbal after care instructions given and explained. Patient alert, oriented and verbalized understanding of instructions. Ambulatory with steady gait. All questions addressed prior to discharge. ID band removed. Patient advised to follow up with PMD. Rxs sent to preferred pharmacy. Patient educated on indication of medication including possible reaction and side effects. Opportunity to ask questions provided and answered.
[2023-04-27 20:05] VITALS: BP 142/83; PULSE 72; RESP 16; TEMP 97.8; O2SAT 95
== END 2023-04-27 20:04 | disposition home or self-care (01) ==
LOC: MED 17:39
DX: E27.40 Unspecified adrenocortical insufficiency (principal); Z79.899 Other long term (current) drug therapy
CPT/HCPCS: 99281